=== PATIENT | male | born 1995 | race Two or more races ===

== ENCOUNTER 2019-11-12 19:30 | Emergency (ER) | payer MEDICAID ==
[~2019-11-12] VITALS: Ht 193 cm; Wt 90.7 kg
[2019-11-12] MEDS ORDERED: KETOROLAC 30 MG/1 ML IM ONE (20:00)
--- NOTE | 2019-11-12 20:03 | NUR ---
Pt alert and oriented on gurney. Pt watching TV. NAD. Pt reprots right sided chest pain starting yesterday. No N/VD. No cardiac hx. MD at bedside for heart US. Xray at bedside. Pt in gown and on all monitors. Call light within reach.
[2019-11-12] MEDS ORDERED: TRAZ-137 PO (20:05)
[2019-11-12] MEDS ORDERED: KETOROLAC 30 MG/1 ML ONE (20:16)
[2019-11-12 20:23] VITALS: BP 104/70
--- NOTE | 2019-11-12 20:41 | NUR ---
Pt alert, resting on gurney. Pt medicated per DEC. VS retaken.
--- NOTE | 2019-11-12 21:21 | NUR ---
Pt dc'd to self care. Pt alert, oriented and ambulatory. NAD. Pt reprots toradol shot did provide some reflief. Pt edcuated on prescriptions, OTC meds, home care and follow-up. Pt VU. Pt ambulated out of ER.
== END 2019-11-12 21:23 | disposition home or self-care (01) ==
LOC: ED 21:15
DX: R07.89 Other chest pain (principal)
CPT/HCPCS: 71045; 93005; 96372; 99283; J1885

== ENCOUNTER 2020-02-28 22:16 | Emergency (ER) | payer MEDICAID ==
[~2020-02-28] VITALS: Ht 193 cm; Wt 100.7 kg
[~2020-02-28 22:16] MED LIST: TRAZ-175 PO
[2020-02-28 22:22] VITALS: BP 138/82
--- NOTE | 2020-02-28 23:50 | NUR ---
Pt became upset on dc, pts family stating that they do not feel safe with him at home and would like an IM injection of his home medication. CLOTILDE Da Silva spoke to family and pt extensively about dc planning. Pt a&ox4, calm and cooperative upon dc.
== END 2020-02-28 23:41 | disposition home or self-care (01) ==
LOC: ED 23:07
DX: M79.672 Pain in left foot (principal); F41.1 Generalized anxiety disorder; Z72.9 Problem related to lifestyle, unspecified; L89.892 Pressure ulcer of other site, stage 2; L03.032 Cellulitis of left toe
CPT/HCPCS: 99283

== ENCOUNTER 2020-03-01 18:45 | Emergency (ER) | payer MEDICAID ==
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
--- NOTE | 2020-03-01 19:17 | NUR ---
PT RESTING ON GURNEY, RESPONDS TO PAINFUL STIMULI WITH INCOMPREHENSIBLE SOUNDS, MONITORS IN PLACE, SUCTION AT BEDSIDE, SIDERAILS UP X2, CALL LIGHT WITHIN REACH.
--- NOTE | 2020-03-01 19:49 | NUR ---
pt resting with hob up and positioned onto side with pillows, suction at bedside and used for secretions, pt responds to painful stimuli with uncomprehensible sounds and opened eyes slightly, pt did state name is "ross" when this rn asked him his name and than he quickly closed eyes and dosed off again
--- NOTE | 2020-03-01 20:48 | NUR ---
PT RESTING WITH EYES CLOSED SNORING, SUCTIONED SECRETIONS, MONITOR IN PLACE, VSS, CALL LIGHT WITHIN REACH
[2020-03-01 22:20] VITALS: BP 127/64
--- NOTE | 2020-03-01 22:21 | NUR ---
pt sitting up on gurney, respirations even and unlabored, monitors in place, vss, call light within reach
--- NOTE | 2020-03-01 23:20 | NUR ---
pt awake and up in room putting personal belongings in his pockets, stated " i'm fine and i'm ready to go, how long do i need to wait". erp updated regarding pt states, pt with steady gait and answering qustions appropriately
== END 2020-03-01 23:30 | disposition home or self-care (01) ==
LOC: EDBD 18:45 → MERGE 23:24 → ED 23:24
DX: F10.120 Alcohol abuse with intoxication, uncomplicated (principal); Y90.0 Blood alcohol level of less than 20 mg/100 ml
CPT/HCPCS: 99285

== ENCOUNTER 2020-04-05 14:09 | Emergency (ER) | payer MEDICAID ==
[~2020-04-05] VITALS: Ht 193 cm; Wt 100.0 kg
[2020-04-05 14:27] VITALS: BP 136/81
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
[2020-04-05 14:44] LABS: BASOPHILS # (AUTO) 0.04 x10^3/uL (0-0.1); BASOPHILS % (AUTO) 1 % (0-1); EOSINOPHILS # (AUTO) 0.34 x10^3/uL (0-0.4); EOSINOPHILS % (AUTO) 5 % (1-7); LYMPHOCYTES # (AUTO) 2.29 x10^3/uL (1-3.4); LYMPHOCYTES % (AUTO) 35 % (22-44); MD NO; MEAN CORPUSCULAR HEMOGLOBIN 29.2 pg (27.5-34.5); MEAN CORPUSCULAR HGB CONC 32.5 g/dL (33.2-36.2); MEAN PLATELET VOLUME 8.7 fL (7.4-10.4); MONOCYTES # (AUTO) 0.38 x10^3/uL (0.2-0.8); MONOCYTES % (AUTO) 6 % (2-9); NEUTROPHILS # (AUTO) 3.44 x10^3/uL (1.8-6.8); NEUTROPHILS % (AUTO) 53 % (42-75); PLATELET COUNT 262 x10^3/uL (130-400); RED BLOOD COUNT 4.89 x10^6/uL (4.38-5.82); RED CELL DISTRIBUTION WIDTH 14.5 % (9.4-14.8)
[2020-04-05 14:56] LABS: ALBUMIN 3.6 g/dL (3.4-5.0); ANION GAP 5 mmol/L (5-15); CALCIUM 8.5 mg/dL (8.5-10.1); CHLORIDE 108 mmol/L (98-107)
[2020-04-05 15:08] LABS: ALANINE AMINOTRANSFERASE 28 U/L (12-78); ALKALINE PHOSPHATASE 66 U/L (45-117); BILIRUBIN,TOTAL 0.5 mg/dL (0.2-1.0); CREATININE 0.79 mg/dL (0.7-1.3); TOTAL PROTEIN 7.4 g/dL (6.4-8.2)
--- NOTE | 2020-04-05 15:08 | NUR ---
SHANNON KLEIN AT BEDSIDE
[2020-04-05 15:27] LABS: AMPHETAMINE SCREEN, URINE Negative (Negative); BARBITURATE SCREEN, URINE Negative (Negative); BENZODIAZEPINE SCREEN, URINE Negative (Negative); CANNABINOID SCREEN, URINE Negative (Negative); COCAINE SCREEN, URINE Negative (Negative); METHADONE SCREEN, URINE Negative (Negative); OPIATE SCREEN, URINE Negative (Negative)
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
== END 2020-04-05 16:40 | disposition home or self-care (01) ==
LOC: ED 15:40
DX: F43.0 Acute stress reaction (principal); Z88.1 Allergy status to other antibiotic agents; Z88.8 Allergy status to other drugs, medicaments and biological substances
CPT/HCPCS: 36415; 80053; 80307; 84443; 85025; 99283

== ENCOUNTER 2020-09-29 09:00 | Emergency (ER) | payer MEDICAID ==
[~2020-09-29] VITALS: Ht 182.9 cm; Wt 80.0 kg
--- NOTE | 2020-09-29 09:13 | NUR ---
THIS IS A 25 YEAR OLD MALE BIB AMBULANCE DUE TO "AGGRESSIVE BEHAVIOR, BREAKING THINGS IN HOUSE" PT STATES HE IS SI, "I WANT AN EXORCISM". PT HAS HX OF TBI, PER EMS, PT PLACED ON LEGAL HOLD BY [employer]. PT CAME IN WITH RESTRAINTS FOR SAFETY, PT PLACED IN TWO POINT RESTRAINTS AT THIS TIME
--- NOTE | 2020-09-29 09:16 | NUR ---
PT YELLING OUT RANDOM SENTENCES. " I HAVE BEEN WORKING OUT". "PLEASE GIVE ME AN EXORCISM". NOT ANSERWING QUESTIONS APPROPRIATLY,
--- NOTE | 2020-09-29 10:10 | NUR ---
PT REFUSING LABS, ROOM SECURED
--- NOTE | 2020-09-29 12:03 | NUR ---
REMOVED RESTRAINTS, PT COOPERATIVE AT THIS TIME. CONTINOUS TO REFUSE LABS
--- NOTE | 2020-09-29 12:23 | NUR ---
TASK RN, COVERING MEAL BREAK. PT RESTING, EYES CLOSED/NAD, SITTER AT DOORWAY.
--- NOTE | 2020-09-29 12:55 | NUR ---
PT SLEEPING, RESP EVEN AND UNLABORED ROOM SECURED, SITTER AT BS
[2020-09-29] MEDS ORDERED: OLANZAPINE 10 MG INJ IM ONE ×2 (12:57→22:57)
[2020-09-29] MEDS: OLANZAPINE 10 MG INJ IM PRN ×2 (13:01→23:15)
--- NOTE | 2020-09-29 14:07 | NUR ---
PT SLEEPING, RESP EVEN AND UNLABORED. SITTER AT DOOR, ROOM REMAINS SECURED.
--- NOTE | 2020-09-29 14:55 | NUR ---
DENIED BY [facility]
--- NOTE | 2020-09-29 15:30 | NUR ---
PT CONTINOUS TO SLEEP, AWAKES WITH VERBAL STIMULI, SITTER AT DOOR. ROOM REMAINS SECURED
--- NOTE | 2020-09-29 15:39 | NUR ---
PROVIDED FOOD, PT SLEEPY, ASKED AGAIN IF I CAN OBTAIN LABS, PT YELLS, "NO". NOTIFIED OF ABOVE
--- NOTE | 2020-09-29 16:17 | NUR ---
PT AGREED TO GET LABS TAKEN, LABS COMPLETED
[2020-09-29 16:21] LABS: BASOPHILS % (AUTO) 1 % (0-1); EOSINOPHILS % (AUTO) 6 % (1-7); LYMPHOCYTES % (AUTO) 35 % (22-44); MEAN CORPUSCULAR HEMOGLOBIN 30.2 pg (27.5-34.5); MEAN CORPUSCULAR HGB CONC 33.6 g/dL (33.2-36.2); MONOCYTES % (AUTO) 7 % (2-9); NEUTROPHILS % (AUTO) 51 % (42-75); PLATELET COUNT 235 x10^3/uL (130-400); RED BLOOD COUNT 4.62 x10^6/uL (4.38-5.82)
[2020-09-29 16:32] LABS: ALBUMIN 3.8 g/dL (3.4-5.0); ANION GAP 7 mmol/L (5-15); CALCIUM 8.9 mg/dL (8.5-10.1); CHLORIDE 107 mmol/L (98-107); CREATININE 0.76 mg/dL (0.7-1.3)
[2020-09-29 16:34] LABS: MD NO
[2020-09-29 16:35] LABS: SALICYLATE LEVEL < 1.7 mg/dL (2.8-20.0)
--- NOTE | 2020-09-29 17:47 | NUR ---
ORDERED MEAL, PT SLEEPING,RESP EVEN AND UNLABORED
--- NOTE | 2020-09-29 19:46 | NUR ---
Report from KIMBERLY henderson. First contact, pt up ambulates to bathroom to provided Urine sample. Pt states "do you think im crazy" then says "please get me an exorcism". Dinner was provided but he says he doesn't want to eat now. Sitter in line of site, room secure. Will continue to monitor.
--- NOTE | 2020-09-29 22:04 | NUR ---
Pt sleeping, RR equal and unlabored. Sitter in line of site. Room safety updates done.
--- NOTE | 2020-09-29 23:18 | NUR ---
Per sitter pt became increasingly aggitated. When this nurse arrived pt is in doorway, clenched fists, aggressive stance, pt refusing redirection. Security at bedside, pt placed in 4pt restraints. Injection of prn psych med given without events. Requested and obtained 4pt restraint order from [facility]. CN and Policy Advisor informed and aware of events causing escalation.
--- NOTE | 2020-09-29 23:51 | NUR ---
RR equal and unlabored. Adequate csmtp to wrists/ankles. Sitter in line of site, restraint form being updated per policy.
--- NOTE | 2020-09-30 00:18 | NUR ---
Pt down to 2pt leather restraints. Mostly sleeping, calm when wakes up doesn't respond to any questions. RR equal and unlabored.
--- NOTE | 2020-09-30 00:43 | NUR ---
Pt now up states he doesn;'t eat meat. Removed and crackers provided. Pt standing at glass at door staring at sitter and this nurse, exercising. Security asked to stand by, as soon as security arrived pt jumped into the gurney. Pt appears to be watching everything staff is doing. Informed Mixer Foam [employer]ber of this behavior. Will continue to monitor.
[2020-09-30] MEDS ORDERED: TRAZODONE 150MG TABLET PO ONE (01:00)
[2020-09-30] MEDS ORDERED: LORazepam 1MG TABLET PO ONE ×2 (01:00→15:30)
--- NOTE | 2020-09-30 01:06 | NUR ---
Pt remains in gurney, resting, eyes closed. RR equal and unlabored.
--- NOTE | 2020-09-30 01:10 | NUR ---
Called lab, they are running urine tox now.
--- NOTE | 2020-09-30 01:20 | NUR ---
Sitter in line of site, pt resting on gurney eyes closed. RR equal and unlabored.
[2020-09-30 01:28] LABS: AMPHETAMINE SCREEN, URINE Negative (Negative); BARBITURATE SCREEN, URINE Negative (Negative); BENZODIAZEPINE SCREEN, URINE Negative (Negative); CANNABINOID SCREEN, URINE Positive (Negative); COCAINE SCREEN, URINE Negative (Negative); METHADONE SCREEN, URINE Negative (Negative); OPIATE SCREEN, URINE Negative (Negative)
--- NOTE | 2020-09-30 02:28 | NUR ---
Remains sleeping, eyes closed, RR equal and unlabored. Sitter in line of site; will continue to monitor.
--- NOTE | 2020-09-30 03:28 | NUR ---
Pt sleeping, RR equal and unlabored. Sitter in line of site, will continue to monitor.
--- NOTE | 2020-09-30 03:43 | NUR ---
packet faxed to [facility] RED[facility].
--- NOTE | 2020-09-30 04:13 | NUR ---
[facility] DECLINES due to pt. needing a one-to-one and understaffing. via kim.
--- NOTE | 2020-09-30 04:25 | NUR ---
RR equal and unlabored, eyes closed. Sitter in line of site.
--- NOTE | 2020-09-30 04:44 | NUR ---
report received from jose conner
--- NOTE | 2020-09-30 06:26 | NUR ---
pt sleeping, no needs at this time
--- NOTE | 2020-09-30 07:03 | NUR ---
report given to stacia conner
--- NOTE | 2020-09-30 07:06 | NUR ---
SBAR HAND-OFF REPORT RECEIVED FROM KIMBERLY FOX. ASSUMING CARE OF PATIENT.
--- NOTE | 2020-09-30 08:00 | NUR ---
BREAKFAST SERVED TO PATIENT.
--- NOTE | 2020-09-30 08:52 | NUR ---
THIS RN ATTEMPTED TO TAKE VITAL SIGNS AND DID GET A BLOOD PRESSURE, PULSE AND RESPIRATORY RATE. HOWEVER, THE PATIENT RAISED HIS CLENCHED FIST VERY SWIFTLY AT ME AND SAID, "WARNING". HE HAD PREVIOUSLY ASKED ME IF I WANTED TO BOX, AT WHICH TIME I TOLD HIM NO. UNABLE TO FINISH TAKING VITAL SIGNS DUE TO SAFETY CONCERNS. HOWEVER, PATIENT IS IN NO DISTRESS AND HAS NO PHYSICAL COMPLAINTS. I SUSPECT THAT HIS TEMPERATURE IS NORMAL. NOTIFIED ZIG ZAG SPRING MACHINE OPERATOR, SAMANTHA, OF PATIENT'S THREAT AND THAT I AM NOT TAKING THE OTHER VITALS. SAMANTHA APPROVES OF THIS.
--- NOTE | 2020-09-30 09:32 | NUR ---
PATIENT IS REQUESTING A [facility] PORTION OF THE KORAN TO BE READ TO HIM BY [facility] CLERGY. CALLED FATHER DAMON WHO CALLED BACK AND STATED THAT HE WILL TRY TO FIND A [facility] CLERGYMAN TO COME IN.
--- NOTE | 2020-09-30 09:48 | NUR ---
FATHER DAMON CALLED AND SAID THAT HE HAS LEFT MESSAGES AT [facility] AND AWAITING CALL BACK TO SEE OF A CLERGYMAN MAY COME IN TO SEE PATIENT.
--- NOTE | 2020-09-30 10:11 | NUR ---
SBAR HAND-OFF REPORT GIVEN TO KIMBERLY RAMIREZ AT [facility]. JAMES WILL CONTACT THEIR MD FOR POSSIBLE ACCEPTANCE TO [facility].
--- NOTE | 2020-09-30 14:18 | NUR ---
Pt leaving via [facility] to [facility] at this time.
[2020-09-30] MEDS ORDERED: NEOSPORIN OINT. PKT 1 PACKET ONE (14:48)
[2020-09-30] MEDS ORDERED: OLANZAPINE 10 MG INJ IM ONE ×2 (15:03→17:21)
[2020-09-30] MEDS ORDERED: LORazepam 1MG TABLET ONE (15:29)
[2020-09-30] MEDS ORDERED: OLANZAPINE 10 MG TABLET ONE (15:29)
[2020-09-30] MEDS ORDERED: LORazepam 2 MG/ML, 1ML IM PRN (15:30)
[2020-09-30] MEDS ORDERED: OLANZAPINE ODT 10MG PO ONE (15:30)
--- NOTE | 2020-09-30 15:45 | NUR ---
Patient [facility] from [facility] when they escorted him out to the [facility]. [facility], who [facility]uffed patient and escorted him, along with [facility] medics, back into the ED and into room 3. Discharge was cancelled and [facility] refused to take patient. Patient then walked out of his room and down by the nurses station. He was escorted by security back to his room and put into four point restraints due to escalation and agitation. FILLING CARRIER Michelle consulted and PO and IM PRN meds ordered. Patient agreed to take PO meds and needed to void. Patient requested to be out of restraints and stated that he would be cooperative. Restraints removed. Patient ambulated to the bathroom and voided and walked back to his room. Brought PRN ativan and Zyprexa PO to patient but patient refused. gas meter repair supervisor brought patient emir andrew to read. pt is staying in the room at this time. Water given to patient as well as orange juice at his request, but he later refused it.
--- NOTE | 2020-09-30 15:56 | NUR ---
Invsilver requested from pharmacy to have in case patient agrees to take it later.
[2020-09-30] MEDS ORDERED: LORazepam 2 MG/ML, 1ML ONE (17:21)
[2020-09-30] MEDS: OLANZAPINE 10 MG INJ IM PRN (17:29)
--- NOTE | 2020-09-30 17:30 | NUR ---
PT LEFT HIS ROOM AND APPROACHED THIS RN IN A THREATENING MANNER AND TRIED TO LEAVE VIA THE AMBULANCE BAY DOOR. REDIRECTED PATIENT BACK TO HIS ROOM AND CALLED SECURITY. PT REPEATEDLY MOVED TOWARD THIS RN. PATIENT RESTRAINED IN TWO POINT RESTRAINTS ORDERED BY DR. WHITTAKER. PT MEDICATED AND REMAINS UNDER CONSTANT VISUAL SUPERVISION OF SITTER AND REMAINS SAFE.
--- NOTE | 2020-09-30 18:00 | NUR ---
PT REMAINS UNDER CONSTANT SUPERVISION OF SITTER AND REMAINS SAFE.
--- NOTE | 2020-09-30 19:10 | NUR ---
REPORT RECIEVED FROM KIMBERLY PICKERING. PT STILL IN RESTRAINTS, IN LINE OF SIGHT OF RAVEN.
--- NOTE | 2020-09-30 19:12 | NUR ---
REPORT RECIEVE FROM [facility]. PT STILL ACCEPTED, AND ASKED TO BE UPDATED ON RESTRAINT STATUS.
--- NOTE | 2020-09-30 19:15 | NUR ---
SBAR HAND-OFF REPORT GIVEN TO KIMBERLY RIVERS.
--- NOTE | 2020-09-30 19:55 | NUR ---
SPOKE WITH PATIENT ABOUT BEHAVIOR AND NEED TO STAY IN ROOM. PT STATES FEELING MORE DROWSY FROM MEDS GIVEN EARLIER AND STATES HE WILL BE COOPERATIVE WITH THIS RN AND STAFF. SECURITY CALLED TO REMOVE RESTRAINTS.
--- NOTE | 2020-09-30 20:52 | NUR ---
PT RESTING IN BED AT THIS TIME, RESP EVEN/UNLABORED. IN LINE OF SIGHT OF RAVEN
--- NOTE | 2020-09-30 21:25 | NUR ---
CALLED [facility], AND UPDATED THAT RESTRAINTS REMOVED AT 1953. WILL CALL BACK WITH UPDATES.
--- NOTE | 2020-09-30 21:44 | NUR ---
PT SLEEPING, RESPIRATIONS EVEN/UNLABORED. PT URINATED 500 ML EARLIER, IN LINE OF SIGHT OF SITTER
--- NOTE | 2020-09-30 23:15 | NUR ---
PT ASLEEP, RESP EVEN/UNLABORED, SITTER IN LINE OF SIGHT.
--- NOTE | 2020-09-30 23:54 | NUR ---
pt asleep, in line of sight of siter, respirations even/unlabored
--- NOTE | 2020-10-01 01:07 | NUR ---
PT ATE SOME FOOD EARLIER, AND WENT BACK TO BED SHORTLY AFTER, AND APPREARS COMFORTABLY SLEEPING. IN LINE OF SIGHT OF RAVEN
--- NOTE | 2020-10-01 02:25 | NUR ---
PT ASLEEP, RESPIRATIONS EVEN/UNLABORED. IN LINE OF SIGHT OF SITTER
[2020-10-01] MEDS ORDERED: LORazepam 1MG TABLET ONE ×3 (02:49→12:38)
[2020-10-01] MEDS: OLANZAPINE 5 MG TABLET PO ONE (02:53)
[2020-10-01] MEDS: LORazepam 1MG TABLET PO ONE (02:53)
--- NOTE | 2020-10-01 03:11 | NUR ---
PT WOKE UP AROUND 0245 AND WAS AGITATED AND STATED HE WANTED TO GO HOME. PT WAS EXPLAINED THAT HE IS ON A LEGAL HOLD AND WE ARE ATTEMPTING TO GET HIM TO [facility]. PT STATED HE DOES NOT UNDERSTAND BEING ON A HOLD, AND DOES NOT WANT TO GO BACK TO [facility]. DR. FREEMAN SPOKE WITH PT EXPLAINING LEGAL HOLD AND PROCESS, PT CONTINUES TO ASK MD TO EXPLAIN AND THENPOINTS HIS MIDDLE FINGER AT HIM. HOWEVER, PT AGREES TO TAKE PILLS TO CALM DOWN AND GET REST. MEDICATION ADMINISTERED PER EMAR.
[2020-10-01] MEDS ORDERED: OLANZAPINE 5 MG TABLET PO SCH (03:30)
--- NOTE | 2020-10-01 04:19 | NUR ---
SPOKE WITH RB, PT HAS BEEN OFF RESTRAINTS AND UPDATED ON ORAL MEDS GIVEN. WAS TOLD TO GET A CALL BACK AFTER CONFERING WITH DOCTOR.
--- NOTE | 2020-10-01 04:35 | NUR ---
SPOKE TO IGNACIO RN. VERIFIED THAT MEDICATUION ADMINISTERED WAS ORALLY. RN TO SPEAK WITH MD AND CALL BACK ON STATUS
--- NOTE | 2020-10-01 06:24 | NUR ---
PT ASLEEP, RESPIRATIONS EVEN/UNLABORED. IN LINE OF SIGHT OF SITTER
--- NOTE | 2020-10-01 07:00 | NUR ---
REPORT REC'VD FROM KIMBERLY RIVERS. PT RESTING ON HOSPITAL BED. EVEN RISE OF CHEST NOTED. PT IN FULL VIEW OF SITTER. ROOM SECURED.
--- NOTE | 2020-10-01 07:25 | NUR ---
PER IGNACIO AT [facility], OBSERVE PT UNTIL 0900. IF NO RESTRAINTS AT THAT TIME, CALL [facility] AND ARRANGE FOR PT TO BE TRANSFERRED THERE.
--- NOTE | 2020-10-01 08:20 | NUR ---
PT BREAKFAST TRAY DELIVERED. PT LOOKED AT RN, BUT DID NOT ACKNOWLEDGE PRESCENCE. PT TURNED ON SIDE AND CLOSED EYES. EVEN RISE AND FALL OF CHEST NOTED. PT IN FULL VIEW OF SITTER. ROOM SECURED.
[2020-10-01] MEDS ORDERED: PALIPERIDONE 1.5 MG TAB.ER.24 PO SCH (09:00)
--- NOTE | 2020-10-01 09:05 | NUR ---
KEE AT [facility] RECONTACTED REGARDING PT. KEE WILL REVIEW WITH THE DR AND ADVISE ON ACCEPTANCE.
--- NOTE | 2020-10-01 09:18 | NUR ---
PT MEDICATED PER MAR. PT REFUSING VITAL SIGNS CHECK.
[2020-10-01 09:34] VITALS: BP 113/70
--- NOTE | 2020-10-01 11:57 | NUR ---
PT LAYING ON SIDE ON ED GURNEY. EVEN RISE AND FALL OF CHEST NOTED. PT IN FULL VIEW OF SITTER. ROOM SECURED. NAD.
--- NOTE | 2020-10-01 11:59 | NUR ---
CALL TO [facility] FOR FAX VERIFICATION. [facility] REQUESTS FACESHEET. TRANSPORTATION REQUEST AND FACESHEET RE-FAXED. "I'LL PUT IT IN FOR 7262" PER [facility] TRANSPORTATION RN OBSERVATION.
[2020-10-01] MEDS ORDERED: OLANZAPINE ODT 10MG PO ONE (12:30)
[2020-10-01] MEDS ORDERED: LORazepam 1MG TABLET PO ONE (12:30)
[2020-10-01] MEDS ORDERED: OLANZAPINE 10 MG TABLET ONE (12:31)
--- NOTE | 2020-10-01 12:31 | NUR ---
CALL BACK TO [facility]SP[facility] TO VERIFY FAX. PLAN FOR TRANSPORT AT 12:45.
--- NOTE | 2020-10-01 12:57 | NUR ---
TASK RN NOTE: [facility] HERE FOR PT.
--- NOTE | 2020-10-01 13:08 | NUR ---
TASK RN NOTE: [facility] CALLED FOR ETA OF PT. RN NOTIFIED FACILITY THAT [facility] SCHEDULED FOR 12:45 BUT REPORTED THEY MAY BE RUNNING BEHIND. AWAITING FOR INTERFACILITY TRANSPORTATION.
--- NOTE | 2020-10-01 13:29 | NUR ---
TASK RN NOTE: [facility] AND [employer] PRESENT TO FACILITATE TRANSPORT. CURRENTLY AWAITING [facility] PE MANAGER REGARDING POSSIBLE RESTRAINT USE.
== END 2020-10-01 13:53 ==
LOC: ED 12:17
DX: F23 Brief psychotic disorder (principal); R41.82 Altered mental status, unspecified
CPT/HCPCS: 36415; 80048; 80299; 80307; 80320; 80329; 82040; 85025; 96372; 99285; J2060; G0480

== ENCOUNTER 2020-10-28 15:16 | Emergency (ER) | payer MEDICAID ==
[~2020-10-28] VITALS: Ht 193 cm; Wt 90.0 kg
[2020-10-28 15:33] VITALS: BP 131/79
--- NOTE | 2020-10-28 15:53 | NUR ---
PT BIB EMS FOR SA. PT HAD ARGUMENT W PARENTS FOR WANTING A CIGARETTES. HELD A KITCHEN KNIFE TO WRIST. PT STATES HE WAS NOT GOING TO HARMSELF. WAS JUST SETTING A NOTION FOR HIS PARENTS. PT COMPLIANT WITH MEDICATIONS. PLACED ON L2K BY [employer]. PT HX OF SHIZOPHRENIA, DEPRESSION
[2020-10-28 15:56] LABS: BASOPHILS % (AUTO) 1 % (0-1); EOSINOPHILS % (AUTO) 6 % (1-7); LYMPHOCYTES % (AUTO) 30 % (22-44); MEAN CORPUSCULAR HEMOGLOBIN 30.2 pg (27.5-34.5); MEAN CORPUSCULAR HGB CONC 33.4 g/dL (33.2-36.2); MEAN PLATELET VOLUME 9.1 fL (7.4-10.4); MONOCYTES % (AUTO) 8 % (2-9); NEUTROPHILS % (AUTO) 56 % (42-75); PLATELET COUNT 313 x10^3/uL (130-400); RED BLOOD COUNT 4.62 x10^6/uL (4.38-5.82); RED CELL DISTRIBUTION WIDTH 14.9 % (9.4-14.8)
[2020-10-28 15:58] LABS: MD NO
[2020-10-28 16:00] LABS: AMPHETAMINE SCREEN, URINE Negative (Negative); BARBITURATE SCREEN, URINE Negative (Negative); BENZODIAZEPINE SCREEN, URINE Negative (Negative); CANNABINOID SCREEN, URINE Negative (Negative); COCAINE SCREEN, URINE Negative (Negative); METHADONE SCREEN, URINE Negative (Negative); OPIATE SCREEN, URINE Negative (Negative)
--- NOTE | 2020-10-28 16:00 | NUR ---
SHANNON KLEIN AT BEDSIDE
[2020-10-28 16:06] LABS: ANION GAP 6 mmol/L (5-15); CALCIUM 9.1 mg/dL (8.5-10.1); CHLORIDE 108 mmol/L (98-107)
[2020-10-28 16:07] LABS: SALICYLATE LEVEL < 1.7 mg/dL (2.8-20.0)
[2020-10-28 16:10] LABS: ALANINE AMINOTRANSFERASE 23 U/L (12-78); ALKALINE PHOSPHATASE 73 U/L (45-117); BILIRUBIN,TOTAL 0.3 mg/dL (0.2-1.0); CREATININE 0.81 mg/dL (0.7-1.3); TOTAL PROTEIN 7.7 g/dL (6.4-8.2)
--- NOTE | 2020-10-28 16:20 | NUR ---
Patient/Caregiver given discharge instructions and they have confirmed that they understand the instructions. Patient ambulatory with steady gait.
== END 2020-10-28 16:22 | disposition home or self-care (01) ==
LOC: ED 16:19
DX: F33.9 Major depressive disorder, recurrent, unspecified (principal); F17.210 Nicotine dependence, cigarettes, uncomplicated; R45.851 Suicidal ideations; R45.1 Restlessness and agitation
CPT/HCPCS: 36415; 80053; 80299; 80307; 80320; 80329; 85025; 99285; G0480

== ENCOUNTER 2020-10-31 23:10 | Emergency (ER) | payer MEDICAID ==
[~2020-10-31] VITALS: Ht 193 cm; Wt 97.5 kg
[2020-10-31 23:13] VITALS: BP 148/86
--- NOTE | 2020-10-31 23:20 | NUR ---
assessment made. PA at bedside.
--- NOTE | 2020-10-31 23:45 | NUR ---
Ultrasound at bedside.
--- NOTE | 2020-11-01 00:43 | NUR ---
liliana rn: gave pt dc paper work, pt calling [facility] for ride home.
== END 2020-11-01 00:45 | disposition home or self-care (01) ==
LOC: ED 23:42
DX: G89.11 Acute pain due to trauma (principal); M25.522 Pain in left elbow; Z88.1 Allergy status to other antibiotic agents; Z88.6 Allergy status to analgesic agent
CPT/HCPCS: 99284

== ENCOUNTER 2020-11-16 23:36 | Emergency (ER) | payer MEDICAID ==
[~2020-11-16] VITALS: Ht 193 cm; Wt 100.0 kg
[2020-11-16] MEDS ORDERED: ZIPRASIDONE 20 MG INJ IM ONE (23:39)
[2020-11-17] MEDS ORDERED: ZIPRASIDONE 20 MG INJ IM ONE
[2020-11-17 00:07] LABS: BASOPHILS % (AUTO) 1 % (0-1); EOSINOPHILS % (AUTO) 5 % (1-7); LYMPHOCYTES % (AUTO) 31 % (22-44); MEAN CORPUSCULAR HEMOGLOBIN 30.1 pg (27.5-34.5); MEAN CORPUSCULAR HGB CONC 33.2 g/dL (33.2-36.2); MEAN PLATELET VOLUME 9.1 fL (7.4-10.4); MONOCYTES % (AUTO) 9 % (2-9); NEUTROPHILS % (AUTO) 55 % (42-75); PLATELET COUNT 279 x10^3/uL (130-400); RED BLOOD COUNT 4.75 x10^6/uL (4.38-5.82); RED CELL DISTRIBUTION WIDTH 14.7 % (9.4-14.8)
[2020-11-17 00:13] LABS: ALANINE AMINOTRANSFERASE 20 U/L (12-78); ANION GAP 7 mmol/L (5-15); CHLORIDE 110 mmol/L (98-107); CREATININE 0.85 mg/dL (0.7-1.3)
--- NOTE | 2020-11-17 00:15 | NUR ---
Garage door x1 down, 2nd door open 2nd to need for pulse ox b/p. Security placed 4pt seema, checked by this RN; pos csmtp. All belonigns removed; jacket, pants, shoes and top labelled and placed in storage locker. Labs drawn and sent. Pt requested IM injection to left deltoid. L4 restraint sheet initiated. Per [employer] also pt goes from calm to very violent pretty quick. CN and insurance agents supervisor aware of situation and need for 4pt seema.
[2020-11-17 00:16] LABS: ALKALINE PHOSPHATASE 74 U/L (45-117); BILIRUBIN,TOTAL 0.3 mg/dL (0.2-1.0); SALICYLATE LEVEL < 1.7 mg/dL (2.8-20.0); TOTAL PROTEIN 7.9 g/dL (6.4-8.2)
[2020-11-17 00:27] LABS: MD NO
--- NOTE | 2020-11-17 01:10 | NUR ---
Report received from KIMBERLY Roche. This RN to assume care. Patient used urinal with tech assistance. He remains in 4 point restraints for safety.
[2020-11-17 01:32] LABS: AMPHETAMINE SCREEN, URINE Negative (Negative); BARBITURATE SCREEN, URINE Negative (Negative); BENZODIAZEPINE SCREEN, URINE Negative (Negative); CANNABINOID SCREEN, URINE Negative (Negative); COCAINE SCREEN, URINE Negative (Negative); METHADONE SCREEN, URINE Negative (Negative); OPIATE SCREEN, URINE Negative (Negative)
--- NOTE | 2020-11-17 01:38 | NUR ---
Warm blanket provided to pt.
--- NOTE | 2020-11-17 01:59 | NUR ---
Patient remains in four point restraints for patient safety. Patient restless on gurney.
--- NOTE | 2020-11-17 02:53 | NUR ---
Patient remains in four point restraints for patient safety. Patient restless on gurney, dozing intermittently. Room secured, belongings locked in cabinet.
--- NOTE | 2020-11-17 03:39 | NUR ---
Patient ready for restraint discontinuation. Patient is calm and agrees to remain cooperative. Security assisted with d/c restraints. No incidents to report.
--- NOTE | 2020-11-17 03:40 | NUR ---
Room secured, belongings in locked cabinet. Sitter outside.
--- NOTE | 2020-11-17 04:55 | NUR ---
Patient resting in gurney. Respirations even and unlabored. Room secured, belongings locked in cabinet. Sitter outside.
--- NOTE | 2020-11-17 05:01 | NUR ---
TP RN: MARLEN reviewing chart at this time. Packet faxed to them.
--- NOTE | 2020-11-17 05:20 | NUR ---
TP RN: MARLEN declining patient stating they recommend patient go to [facility].
--- NOTE | 2020-11-17 05:26 | NUR ---
PSYCH PACKET FAXED TO [facility]/PRETTY GEE/MAUREEN
--- NOTE | 2020-11-17 05:37 | NUR ---
Patient resting in gurney. Respirations even and unlabored. Room secured, belongings locked in cabinet. Sitter outside.
--- NOTE | 2020-11-17 05:56 | NUR ---
Spoke with Alan from [facility]. He states they are prepared to accept patient however due to their policy, patient cannot be accepted until four hours after discontinuation of restraints. Will reevaluate after 0740.
--- NOTE | 2020-11-17 06:39 | NUR ---
Patient resting in gurney. Respirations even and unlabored. Room secured, belongings locked in cabinet. Sitter outside. Breakfast tray ordered.
--- NOTE | 2020-11-17 06:42 | NUR ---
[facility] WANTS PATIENT OUT OF RESTRAINTS X12HRS.
--- NOTE | 2020-11-17 06:44 | NUR ---
Report given to KIMBERLY Gale. Patient care transferred.
--- NOTE | 2020-11-17 06:45 | NUR ---
RECEIVED REPORT FROM LAVON. PT LAYING ON GURNEY SLEEPING CALMLY, NAD WITH EQUAL CHEST RISE/FALL, NO NEEDS AT THIS TIME, PT REMAINS IN SAFE ENVIRONMENT, SITTER IN VIEW.
--- NOTE | 2020-11-17 08:02 | NUR ---
PT CONTINUES SLEEPING ON GURNEY CALMLY, NAD WITH EQUAL CHEST RISE/FALL, NO NEEDS AT THIS TIME, PT REMAINS IN SAFE ENVIRONMENT, SITTER IN VIEW.
--- NOTE | 2020-11-17 08:48 | NUR ---
FAMILY TO NOTIFY OF TRANSFER- ANIS (DAD) [phone]
[2020-11-17 09:10] VITALS: BP 104/69
--- NOTE | 2020-11-17 09:11 | NUR ---
pt given meal tray, vss, denies SI.
--- NOTE | 2020-11-17 10:26 | NUR ---
PT CONTINUES SLEEPING ON GURNEY CALMLY, NAD WITH EQUAL CHEST RISE/FALL, COMFORT MEASURES PROVIDED, PT REMAINS IN SAFE ENVIRONMENT, SITTER IN VIEW.
--- NOTE | 2020-11-17 11:03 | NUR ---
PT LAYING ON GURNEY SLEEPING CALMLY, NAD WITH EQUAL CHEST RISE/FALL, NO NEEDS AT THIS TIME, PT REMAINS IN SAFE ENVIRONMENT, SITTER IN VIEW.
--- NOTE | 2020-11-17 11:25 | NUR ---
UPDATED PT STATUS TO MARQUIS ([facility]), WILL CALL BACK AFTER CONSULTING WITH ACCEPTING MD.
--- NOTE | 2020-11-17 12:43 | NUR ---
PT RESTING ON GURNEY W/ GARAGE DOORS DOWNX2, SITTER OUTSIDE ROOM FOR SAFETY. RESP EVEN AND UNLABORED, NADN. AWAITING TRANSFER.
[2020-11-17] MEDS ORDERED: OLANZAPINE 10 MG TABLET ONE ×2 (13:07→13:22)
[2020-11-17] MEDS ORDERED: OLANZAPINE 10 MG INJ IM ONE ×2 (13:07→13:30)
[2020-11-17] MEDS ORDERED: OLANZAPINE ODT 10MG PO ONE (13:30)
--- NOTE | 2020-11-17 13:42 | NUR ---
PT BECAME VERY RESTLESS & MODERATELY ANXIOUS, PACING ROOM, PT NOT VIOLENT OR AGGRESSIVE AT THIS TIME BUT MAINTAINS INTENSE GAZE WHILE TALKING TO STAFF, PRN MED GIVEN PER EMAR/KRISTYN ORDER FOR TRANSPORT, PT RELUNCTANT TO TAKE MED BUT AGREEABLE WITH SECURITY PRESENT (ALSO TO MAINTAIN STAFF SAFETY), UPDATED REPORT GIVEN TO LOGAN ([facility]), PT TRANSPORTED VIA [facility] WITH ALL PERSONAL BELONGINGS & WITH STEADY GAIT, PT REFUSED LUNCH TRAY.
== END 2020-11-17 13:52 ==
LOC: ED 11-17 00:06
DX: R25.9 Unspecified abnormal involuntary movements (principal); R45.850 Homicidal ideations; F17.200 Nicotine dependence, unspecified, uncomplicated; Z91.14 Patient's other noncompliance with medication regimen
CPT/HCPCS: 36415; 80053; 80299; 80307; 80320; 80329; 85025; 96372; 99285; J3486; G0480

== ENCOUNTER 2020-12-13 09:20 | Emergency (ER) | payer MEDICAID ==
[~2020-12-13] VITALS: Ht 193 cm; Wt 93.0 kg
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
[2020-12-13 09:53] LABS: BASOPHILS % (AUTO) 2 % (0-1); EOSINOPHILS % (AUTO) 5 % (1-7); LYMPHOCYTES % (AUTO) 32 % (22-44); MEAN CORPUSCULAR HEMOGLOBIN 30.4 pg (27.5-34.5); MEAN CORPUSCULAR HGB CONC 33.5 g/dL (33.2-36.2); MEAN PLATELET VOLUME 8.9 fL (7.4-10.4); MONOCYTES % (AUTO) 8 % (2-9); NEUTROPHILS % (AUTO) 53 % (42-75); PLATELET COUNT 292 x10^3/uL (130-400); RED BLOOD COUNT 4.84 x10^6/uL (4.38-5.82); RED CELL DISTRIBUTION WIDTH 14.3 % (9.4-14.8)
[2020-12-13] MEDS ORDERED: VENL37.52 PO (09:56)
[2020-12-13 09:58] LABS: ANION GAP 5 mmol/L (5-15); CALCIUM 9.4 mg/dL (8.5-10.1); CHLORIDE 107 mmol/L (98-107)
[2020-12-13 09:59] LABS: MD NO
[2020-12-13] MEDS ORDERED: ZIPRASIDONE 20 MG INJ IM ONE ×3 (10:00→15:00)
--- NOTE | 2020-12-13 10:00 | NUR ---
PT NOT STAYING IN ROOM AND STANDING IN RENDON. PT WANTING TO TALK TO MD. TO SPEAK WITH MD ABOUT GETTING MEDS
[2020-12-13 10:02] LABS: CREATININE 0.86 mg/dL (0.7-1.3)
[2020-12-13 10:03] LABS: SALICYLATE LEVEL < 1.7 mg/dL (2.8-20.0)
[2020-12-13 10:09] LABS: AMPHETAMINE SCREEN, URINE Negative (Negative); BARBITURATE SCREEN, URINE Negative (Negative); BENZODIAZEPINE SCREEN, URINE Negative (Negative); CANNABINOID SCREEN, URINE Negative (Negative); COCAINE SCREEN, URINE Negative (Negative); METHADONE SCREEN, URINE Negative (Negative); OPIATE SCREEN, URINE Negative (Negative)
--- NOTE | 2020-12-13 10:10 | NUR ---
ONCE SECURITY AT SIDE PT MEDICATED NOTED ON DEC WITH MYRA. PT PLACED IN TWO-POINT RESTRAINTS. SHANNON AT BEDSIDE INTERVIEWING PT. PT KEEPS LOOKING TO LEFT LIKE SOMEONE TALKING TO HIM. PT TOLD SHANNON HE BELIEVES I AM TRYING TO SEPARATE HIM FROM SHANNON. PT STATES HE HAS NOT BEEN TAKING HIS INVEGA BUT TAKING CLONAZEPAM AND EFFEXOR.
--- NOTE | 2020-12-13 10:52 | NUR ---
PT REMAINS IN DIRECT VIEW OF SITTER AND RESTRAINTS IN PLACE. PT WANTS OUT OF RESTRAINTS BUT EXPLAINED TO PT THAT I AM NOT COMFORTABLE WITH IT. PT IS FLIGHT RISK AND WANTS TO LEAVE AND REMAINS ON HOLD
[2020-12-13] MEDS ORDERED: LORazepam 1MG TABLET ONE ×2 (11:19→17:59)
--- NOTE | 2020-12-13 11:28 | NUR ---
SHANNON INFORMED PT THAT HE WILL REMAIN ON HOLD AND THAT WE WILL WORK ON GETTING HIM PLACED AT [facility] OR [facility]. PT STATES HE WILL NOT TRY TO LEAVE IF RESTRAINTS REMOVED. ADDITIONALLY MEDICATED FOR ANXIETY NOTED ON DEC. SECURITY TO REMOVE RESTRAINTS.
[2020-12-13] MEDS ORDERED: LORazepam 1MG TABLET PO ONE ×3 (11:30→21:00)
--- NOTE | 2020-12-13 11:42 | NUR ---
RESTRAINTS REMOVED FROM PT. PT COOPERATIVE AND REMAINING IN GURNEY
[2020-12-13] MEDS ORDERED: CLON0.5T PO (12:05)
--- NOTE | 2020-12-13 12:14 | NUR ---
PT GETS OUT OF BED AND THEN REDIRECTED BACK PERIODICALLY. REMAINING IN ROOM
--- NOTE | 2020-12-13 13:07 | NUR ---
PATIENT APPARENTLY VEGETARIAN, GOT HIM A VEGETARIAN MEAL TRAY. CALMER, IN BED, COOPERATING AT THIS TIME
--- NOTE | 2020-12-13 13:14 | NUR ---
GOT PATIENT JUICE
--- NOTE | 2020-12-13 13:56 | NUR ---
PATIENT RACING OUT OF ROOM AND CALLING PEOPLE, ASKING FOR CHIROPRACTOR AND VERY ANXIOUS, PACING ABOUT. WILL ASK FOR MEDS
--- NOTE | 2020-12-13 14:04 | NUR ---
WHILE LOOKING FOR PA/MD FOR PSYCH MEDS, PATIENT RAN OUT OF ROOM AND RAN OUT OF DEPARTMENT... SECURITY IS LOOKING FOR PATIENT. REPORT TO JOSE LUIS.
--- NOTE | 2020-12-13 14:12 | NUR ---
CALLED [employer] AND GAVE DESCRIPTION, FILLED OUT OCCURANCE REPORT
--- NOTE | 2020-12-13 14:23 | NUR ---
[id number] INCIDENT REPORT FILED. [employer] AWARE.
--- NOTE | 2020-12-13 14:45 | NUR ---
pt hs been returned to department by MAY. per report, pt was located walking a few blocks from the hospital security present upon arrival. pt has been placed into restraints. pt is agitated but cooperative with assessment and questions when asked pt why he left the department, pt states that he wanted to go home to study. attempted to re-orient pt to situation. pt is unaware of the day or date. when asked pt what the current month is, pt reports October (it is December). pt is aware that we are in [place] and that he is currently in [facility] but when asked if he know who the president is, he did not know at first and then said toni Lunsford attempted to re-orient pt to legal hold and current plan of care, pt began talking about arguing with his mother L D RN about losing a marijuana cigarette pt has no obvious injuries and denies pain at this time. pt reports that he smoked a cigarette when he was gone Liam, psych ERNIE s at bedside for eval and to update pt on POC.
[2020-12-13] MEDS ORDERED: LORazepam 2 MG/ML, 1ML IM ONE (15:00)
--- NOTE | 2020-12-13 15:06 | NUR ---
Beni brooks in [facility] - 12/13/20 at 1507 by BRUCE Report from KIMBERLY Worthington. Assumed care.
--- NOTE | 2020-12-13 15:07 | NUR ---
Report from KIMBERLY Worthington. Assumed care.
--- NOTE | 2020-12-13 15:10 | NUR ---
report to Idalia HARRIS
--- NOTE | 2020-12-13 15:35 | NUR ---
Pt still in 4 point restraints, sitter at bedside. Pt requested water, sitting up bed and assisting pt with drinking.
[2020-12-13] MEDS ORDERED: LORazepam 2 MG/ML, 1ML ONE (15:42)
--- NOTE | 2020-12-13 15:48 | NUR ---
Pt given 1mg Ativan, IM- pt compliant with medication administration. Geodon not given- will wait to discuss administration of it with psychiatric specialist as pt is currently in restraints and anxious but cooperative. Sitter at bedside. [address] Offered pt a blanket, pt refused.
--- NOTE | 2020-12-13 16:15 | NUR ---
Pt requesting to have restraints loosened- this RN checked all restraints and they are securely but comfortably fitted to his wrists and ankles. Explained to pt that restraints need to stay on for his safety. Sitter at bedside. Pt requesting water, provided pt water.
--- NOTE | 2020-12-13 16:30 | NUR ---
ENVIRONMENTAL CONSERVATION OFFICER at bedside discussing plan of care with pt, pt cooperative and in agreement.
--- NOTE | 2020-12-13 16:55 | NUR ---
Called security to come remove restraints.
--- NOTE | 2020-12-13 16:57 | NUR ---
Restraints removed by security, pt cooperative, staying in bed.
--- NOTE | 2020-12-13 17:19 | NUR ---
Provided pt socks and new gown per pt request as his gown had some water spilt on it. Pt standing, stretching, remaining in room and cooperative.
--- NOTE | 2020-12-13 18:03 | NUR ---
Pt cooperative, remaining in room but anxious and pacing around. 1mg PO Ativan given.
--- NOTE | 2020-12-13 18:41 | NUR ---
Note cecilia in EDM - 12/13/20 at 1859 by BRUCE Lights turned down per pt request, pt resting, eyes closed, breathing equal, non-labored. In view of sitter.
[2020-12-13] MEDS ORDERED: NICOTINE 21 MG/24 HR PATCH.TD24 ONE (18:57)
--- NOTE | 2020-12-13 18:59 | NUR ---
Pt requesting nicotine patch. Ordered by ED MD and applied by this RN to right upper arm.
[2020-12-13] MEDS ORDERED: NICOTINE 21 MG/24 HR PATCH.TD24 TD ONE (19:00)
--- NOTE | 2020-12-13 19:26 | NUR ---
Pt vegetarian- provided pt humus, chips, fig bar.
[2020-12-13 20:06] VITALS: BP 101/50
[2020-12-13] MEDS ORDERED: QUETIAPINE 100MG TABLET PO SCH (21:00)
[2020-12-14] MEDS ORDERED: PALIPERIDONE 3 MG TAB.ER.24 PO SCH (09:00)
== END 2020-12-13 20:18 | disposition left against medical advice (07) ==
LOC: ED 10:36
DX: F20.9 Schizophrenia, unspecified (principal); F22 Delusional disorders
CPT/HCPCS: 36415; 80048; 80299; 80307; 80320; 82040; 85025; 96372; 99285; J2060; J3486; 80329; G0480

== ENCOUNTER 2021-01-01 19:33 | Emergency (ER) | payer MEDICAID ==
[~2021-01-01] VITALS: Ht 182.9 cm; Wt 99.0 kg
[~2021-01-01 19:33] MED LIST changes: +CLON0.5T PO; +VENL37.52 PO
--- NOTE | 2021-01-01 19:38 | NUR ---
SILKE RN:SHARONA OLVERA FOR INTOXICATION OF ETOH AND MARIJUANA, UNABLE TO WALK, APPLIED MONITOR BP/PULSE OX, SIDE RAILS UP, ORIENTED/INSTRUCTED PT TO USE CALL LIGHT ON LAP, CELL PHONE ON BS TABLE. URINAL PLACED ON SIDE RAIL. NO INTERVENTIONS BY MAY. POC EXPLAINED TO PT.
[2021-01-01 19:55] VITALS: BP 106/58
--- NOTE | 2021-01-01 19:57 | NUR ---
PATIENT RESTING IN BED IN NAD. AROUSES TO VERBAL STIMULI. CALL BROWN IN REACH. URINAL IN REACH. SAFETY MAINTAINED. BEDRAILS UP FOR SAFETY. NO IMPULSIVE ACTIVITY AT THIS TIME. VS REMAIN STABLE ON RA. WILL CONTINUE TO MONITOR.
--- NOTE | 2021-01-01 20:05 | NUR ---
patient declining food or water at this time. water placed at bedside. will continue to monitor
--- NOTE | 2021-01-01 20:45 | NUR ---
PATIENT STATING THAT "I JUST WANT TO GO HOME". PATIENT REPORTS THAT HE HAS SOMEONE THAT COULD COME PICK HIM UP "BUT THEY ARE MAD AT ME"
--- NOTE | 2021-01-01 21:04 | NUR ---
patient continues to come out of room stating "im leaving". RN asked patient to go back to room. patient complied with this request. steady gait. calm. cooperative. unable to get ahold of mother with number patient supplied me with. patient states his phone . i discussed plan to dc with primary MD and RN and MD agreed patient would be more safe to dc home with taxi voucher than to walk out. no IV placed during this ER visit
--- NOTE | 2021-01-01 21:20 | NUR ---
dsicharge instructions reviewed with patient. patient acknowledges understanding on need to stop drinking alcohol and provided taxi voucher directly to his home address. i was unable to get in contact with his mother for a ride home. no IV placed during this ER visit. patient provided addiction facility resources. these were reviewed with him as well. Addendum: 01/01/21 at 2121 by ADHIRAMY all personal belongings with patient on discharge
== END 2021-01-01 21:29 | disposition home or self-care (01) ==
LOC: ED 21:23
DX: F10.120 Alcohol abuse with intoxication, uncomplicated (principal); F20.9 Schizophrenia, unspecified; Z88.1 Allergy status to other antibiotic agents; Z88.8 Allergy status to other drugs, medicaments and biological substances; Y90.0 Blood alcohol level of less than 20 mg/100 ml
CPT/HCPCS: 99283

== ENCOUNTER 2021-06-05 16:40 | Emergency (ER) | payer MEDICAID ==
[~2021-06-05] VITALS: Ht 182.9 cm; Wt 94.7 kg
--- NOTE | 2021-06-05 16:45 | NUR ---
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 per report, pt has a hx of TBI and schizophrenia and has been becoming increasingly dangerouos to family members at home. pt has been throwing furniture and turning on the gas burners and leaving them on. pt also admits to meth use, but is non-complaint with psych medications. upon admit, pt is restrained on MAY corona as he was in handcuffs on scene SHIP ENGINES OPERATING ENGINEER and very agitated. pt agitated and anxious. has a notebook with him that he keeps flipping the pages on. pt uncooperative with questionsing and assessment pt has no obvious injury. NICKERSON. no apparent resp. distress no family present
[2021-06-05] MEDS ORDERED: ZIPRASIDONE 20 MG INJ IM ONE ×2 (17:00→17:50)
--- NOTE | 2021-06-05 17:00 | NUR ---
room secured and sitter present for safety. pt notebook and cell phone secured. pt refuses to change clothing
--- NOTE | 2021-06-05 17:00 | NUR ---
pt zhao become increasingly verbally aggressive. pt continues to be uncooperative with assessment. when asked any question, pt responds "bitch". pt states "you wanna fuck me?" attempting repeated re-orientation, pt states "black magic is happening around me" pt refuses to undress and change into gown. pt repeatedly swearing at staff and is making inappropriate statements to this RN and other staff members security at [facility] has placed pt in restraints for safety
--- NOTE | 2021-06-05 17:10 | NUR ---
lab has been to bedside to attempt draw. pt refuses. pt continues to be agitated and paranoid. pt yelling at lab staff. lab draw not completed at this time
--- NOTE | 2021-06-05 17:30 | NUR ---
pt continues to be agitated and paranoid. no apparent respiratory distress room secure. sitter present for safety
[2021-06-05] MEDS ORDERED: PALIPERIDONE 6 MG TAB.ER.24 PO ONE (18:00)
--- NOTE | 2021-06-05 18:00 | NUR ---
pt continues to be agitated and verbally aggressive. pt states "I will run!" pt medicated per order for agitattion. pt assisted with urinal by Eliot HARRIS. attempting to re-orient pt regarding POC. pt continues to refuse lab draw. pt yelling "get me a road freight conductor!" room secure. sitter present for safety
--- NOTE | 2021-06-05 18:13 | NUR ---
patient continues yelling
[2021-06-05 18:27] LABS: AMPHETAMINE SCREEN, URINE Negative (Negative); BARBITURATE SCREEN, URINE Negative (Negative); BENZODIAZEPINE SCREEN, URINE Negative (Negative); CANNABINOID SCREEN, URINE Negative (Negative); COCAINE SCREEN, URINE Negative (Negative); METHADONE SCREEN, URINE Negative (Negative); OPIATE SCREEN, URINE Negative (Negative)
--- NOTE | 2021-06-05 18:30 | NUR ---
pt continues to be agitated and paranoid. states "black magic has changed my eyes" pt states "I emand a advanced developer. call the police! I need themhere with me" attempting to re-orient patient to POC and situation. pt continues to refuse lab draw. pt states "I know my rights! you can't draw my blood. I gave you a urine sample and that is enough. You must be so sad that you are a bitch" patient in no respiratory distress. room secure. sitter present for safety
--- NOTE | 2021-06-05 18:45 | NUR ---
pt in no apparent respiratory distress. room secure, sitte present for safety report to Toya HARRIS
--- NOTE | 2021-06-05 19:00 | NUR ---
FIRST CONTACT WITH PATIENT. PATIENT LYING IN STRETCHER WITH EYES CLOSED. NAD. ROOM SECURE. WILL CONTINUE TO MONITOR.
--- NOTE | 2021-06-05 19:15 | NUR ---
PATIENT REQUESTING TO GO TO THE BATHROOM. RN TO BEDSIDE TO EXPLAIN THAT HE IS UNSAFE TO COME OUT OF RESTRAINTS AT THIS TIME BUT I CAN ASSIST WITH A URINAL. PATIENT YELLING AT THIS RN STATING I CANT REFUSE HIM THE BATHROOM. PATIENT CONTINUED TO BE VERBALLY AGRESSIVE AT THIS RN. PATIENT AGREEABLE TO ALLOWING THIS RN TO HELP HIM WITH URINAL. WILL CONTINUE TO MONITOR.
--- NOTE | 2021-06-05 19:34 | NUR ---
PATIENT AGREEABLE TO BLOODWORK AT THIS TIME. PATIENT REMAINED CALM THROUGHOUT PROCEDURE. PATIENT REQUESTING TO COME OUT OF RESTRAINTS. ADVISED PATIENT WE WILL REMOVE ONE LIMB AT A TIME FOR SAFETY. PATIENT AGREEABLE TO THE PLAN AT THIS TIME.
--- NOTE | 2021-06-05 19:45 | NUR ---
R WRIST RESTRAINT REMOVED. BELT REMOVED WELL. PATIENT ATTEMPTED TO GRAB BELT OUT OF RN HAND DURING REMOVAL. PATIENT PROVIDED WITH ICE WATER.
[2021-06-05 19:47] LABS: BASOPHILS % (AUTO) 1 % (0-1); EOSINOPHILS % (AUTO) 2 % (1-7); LYMPHOCYTES % (AUTO) 26 % (22-44); MEAN CORPUSCULAR HEMOGLOBIN 30.7 pg (27.5-34.5); MEAN CORPUSCULAR HGB CONC 33.4 g/dL (33.2-36.2); MEAN PLATELET VOLUME 9.4 fL (7.4-10.4); MONOCYTES % (AUTO) 6 % (2-9); NEUTROPHILS % (AUTO) 65 % (42-75); PLATELET COUNT 254 x10^3/uL (130-400); RED BLOOD COUNT 5.01 x10^6/uL (4.38-5.82); RED CELL DISTRIBUTION WIDTH 14.3 % (9.4-14.8)
[2021-06-05 19:58] LABS: ALANINE AMINOTRANSFERASE 22 U/L (12-78); ALBUMIN 3.7 g/dL (3.4-5.0); ANION GAP 8 mmol/L (5-15); CALCIUM 9.6 mg/dL (8.5-10.1); CHLORIDE 108 mmol/L (98-107); CREATININE 0.68 mg/dL (0.7-1.3)
[2021-06-05 20:00] LABS: SALICYLATE LEVEL < 1.7 mg/dL (2.8-20.0)
[2021-06-05 20:01] LABS: ALKALINE PHOSPHATASE 64 U/L (45-117); BILIRUBIN,TOTAL 0.2 mg/dL (0.2-1.0); TOTAL PROTEIN 7.6 g/dL (6.4-8.2)
--- NOTE | 2021-06-05 20:30 | NUR ---
SPOKE WITH MD RIOS ABOUT ADMIN INVEGA AT THIS TIME. OK TO GIVE NOW. UPDATED MD ON RESTRAINT STATUS.
--- NOTE | 2021-06-05 20:32 | NUR ---
REQUESTED INVEGA FROM PHARM AT THIS TIME.
--- NOTE | 2021-06-05 21:15 | NUR ---
PATIENT PROVIDED WITH BLANKETS REQUESTED. PATIENT STATES "I AM GETTING THE FLU I LAY HERE AND FREEZE." PATIENT STATES HE NEEDS TO GO AT THIS TIME TO TAKE CARE OF SOME BUSINESS. PATIENT ADIVSED ON A LEGAL HOLD AT THIS TIME AND HE WILL REMAIN HERE FOR SAFETY. PATIENT DID NOT RESPOND. 1:[address] ROOM REMAINS SECURE. LOCKED RESTRAINTS REMAIN IN PLACE. WILL CONTINUE TO ASSESS REMOVAL OF ALL RESTRAINTS. WILL CONTINUE TO MONITOR PATIENT.
--- NOTE | 2021-06-05 21:48 | NUR ---
SECURITY CALLED AT THIS TIME TO HELP IN ATTEMPT TO REMOVE ONE LIMB LOCKED RESTRAINT.
--- NOTE | 2021-06-05 22:45 | NUR ---
PATIENT LYING IN STRETCHER WITH EYES CLOSED. APPEARS CALM. EXPLAINED ATTEMPT TO REMOVE ANOTHER RESTRAINT. PATIENT VERBALIZED UNDERSTANDING ASKING "YES PLEASE." WILL CONTINUE TO MONITOR.
--- NOTE | 2021-06-05 23:00 | NUR ---
SECURITY CALLED AT THIS TIME TO ASSIST IN REMOVING LOCKED RESTRAINT.
--- NOTE | 2021-06-05 23:00 | NUR ---
MD AWARE PATIENT IS NOW OUT OF RESTRAINTS.
--- NOTE | 2021-06-05 23:00 | NUR ---
Beni brooks in [facility] - 06/05/21 at 2316 by SABA MD AWARE PATIENT IS NOT OUT OF RESTRAINTS.
--- NOTE | 2021-06-06 00:38 | NUR ---
PATIENT LYING IN STRETCHER WITH EYES CLOSED. NAD. 1:1 SITTER REMAINS. ROOM REMAINS SECURE. WILL CONTINUE TO MONITOR.
--- NOTE | 2021-06-06 00:50 | NUR ---
REPORT GIVEN TO KIMBERLY OLGUIN
--- NOTE | 2021-06-06 00:53 | NUR ---
Report from Toya HARRIS
--- NOTE | 2021-06-06 01:07 | NUR ---
CALLED [facility] THEY ARE HAVING THEIR PROVIDER TAKE A LOOK AT THE PT
--- NOTE | 2021-06-06 01:24 | NUR ---
Pt resting with eyes closed, even and symmetrical chest rise, NADN, sitter in sight of pt, WCTM
--- NOTE | 2021-06-06 01:27 | NUR ---
CB GEE (GARRY) DECLINED PT
--- NOTE | 2021-06-06 01:33 | NUR ---
FAXED PACKET TO [facility], [facility], [facility]
--- NOTE | 2021-06-06 02:00 | NUR ---
Patient resting with eyes closed, bilateral chest rise and fall, no apparent distress noted. Continue to monitor patients condition with sitter at bedside.
--- NOTE | 2021-06-06 02:00 | NUR ---
ALLEGRA EMERY) DR. HERNANDES ACCEPTING
--- NOTE | 2021-06-06 03:01 | NUR ---
Patient resting with eyes closed, bilateral chest rise and fall, no apparent distress noted. Continue to monitor patients condition with sitter at bedside.
--- NOTE | 2021-06-06 03:54 | NUR ---
report to dalila jovel at [facility], pt awaiting transport by [facility] to 7am
--- NOTE | 2021-06-06 05:00 | NUR ---
Patient resting with eyes closed, bilateral chest rise and fall, no apparent distress. Continue to monitor patients condition with sitter at bedside.
--- NOTE | 2021-06-06 06:06 | NUR ---
Patient resting with eyes closed, bilateral chest rise and fall, no apparent distress. Continue to monitor patients condition with sitter at bedside.
--- NOTE | 2021-06-06 06:54 | NUR ---
REPORT FROM KIMBERLY OLGUIN. PT RESTING IN [facility], EYES CLOSED, NADN AT THIS TIME, TM.
--- NOTE | 2021-06-06 08:02 | NUR ---
report to ems at this time. pt belongings given to ems. pt ambulatory to ambulance with ems.
[2021-06-06 08:03] VITALS: BP 115/78
== END 2021-06-06 08:04 ==
LOC: ED 22:50
DX: F29 Unspecified psychosis not due to a substance or known physiological condition (principal); F22 Delusional disorders; Z91.14 Patient's other noncompliance with medication regimen; F20.9 Schizophrenia, unspecified
CPT/HCPCS: 36415; 80053; 80299; 80307; 80320; 80329; 85025; 96372; 99285; J3486; 99283; G0480